=== PATIENT | female | born 1980 | race Caucasian/White ===

== ENCOUNTER 2017-08-11 23:35 | Emergency (ER) | payer BC ==
[~2017-08-11] VITALS: Ht 154.9 cm; Wt 63.3 kg
[~2017-08-11 23:35] MED LIST: AUGM875T PO; BACT800T5 PO; DOXY100T PO; HYDR-3516 PO; KETO10 PO; LORTA5 PO
[2017-08-11 23:42] VITALS: BP 120/58; PULSE 81; RESP 18; TEMP 98.2; O2SAT 100
== END 2017-08-12 00:23 | disposition left against medical advice (07) ==
LOC: PHED 23:35
DX: R09.89 Other specified symptoms and signs involving the circulatory and respiratory systems (principal)
CPT/HCPCS: 99281